=== PATIENT | female | born 1990 | race Caucasian/White ===

== ENCOUNTER 2018-03-03 18:50 | Observation (INO) | payer BC, OTHER ==
[~2018-03-03] VITALS: Ht 165.1 cm; Wt 72.5 kg
[2018-03-03] MEDS: SODIUM CHLORIDE 0.9% 1000ML 1,000 ML IV STA ×2 (19:23→22:27)
--- NOTE | 2018-03-03 20:13 | DIAGNOSTIC IMAGING REPORT ---
HEAD WITHOUT CONTRAST (CT) CT DOSE: 651.12 mGy.cm HISTORY: Trauma Struck head, syncope, emesis TECHNIQUE: Multiaxial CT images of the head were performed without the use of intravenous contrast. A dose lowering technique was utilized adhering to the principles of ALARA. Comparison: None. Findings: The paranasal sinuses and mastoid air cells are clear. The calvarium and skull base are intact. The ventricles and sulci are within normal limits. There is no mass, hematoma, midline shift, or acute infarct. Impression: No acute intracranial abnormality. The above report was generated using voice recognition software. It may contain grammatical, syntax or spelling errors. Electronically signed by: Jarret Morelos M.D. 03/03/2018 8:11 PM Dictated Date/Time: 03/03/2018 8:10 PM
[2018-03-03] MEDS ORDERED: ACET-1311 PO (20:22)
[2018-03-03] MEDS ORDERED: LORAZEPAM 0.5 MG TAB SL STA (21:53)
[2018-03-03 22:44] LABS: EOS % 0.1 %; EOS ABS # 0.01 K/uL (0-0.5); HEMATOCRIT 41.3 % (37-47); HEMOGLOBIN 14.5 g/dL (12.0-16.0); IG# 0.02 K/uL (0.00-0.02); LYMPH % 8.4 %; MEAN CELL VOLUME 86.8 fL (80-100); MEAN CORPUSCULAR HEMOGLOBIN 30.5 pg (25-34); MEAN CORPUSCULAR HGB CONC 35.1 g/dl (32-36); MEAN PLATELET VOLUME 9.6 fL (7.4-10.4); MONO % 3.7 %; MONO ABS # 0.35 K/uL (0.11-0.59); NEUT % 87.6 %; NEUT ABS # 8.36 K/uL (1.4-6.5); PLATELET COUNT 263 K/uL (130-400); RED CELL DISTRIBUTION WIDTH SD 38.4 fL (36.4-46.3); WHITE BLOOD COUNT 9.54 K/uL (4.8-10.8)
[2018-03-03 23:01] LABS: ALT/SGPT 23 U/L (12-78); AST/SGOT 16 U/L (15-37); BLOOD UREA NITROGEN 8 mg/dl (7-18); CALCIUM 8.9 mg/dl (8.5-10.1); CARBON DIOXIDE 24 mmol/L (21-32); GLUCOSE 88 mg/dl (70-99); POTASSIUM 3.9 mmol/L (3.5-5.1); SODIUM 136 mmol/L (136-145)
[2018-03-03 23:06] LABS: ALKALINE PHOSPHATASE 79 U/L (45-117); TOTAL PROTEIN 8.2 gm/dl (6.4-8.2)
[2018-03-04] VITALS (13 sets, daily range): BP systolic 88–104; BP diastolic 51–69; PULSE 64–116; TEMP 36.8–37.1; O2SAT 96–100; Ht 165.1 cm; Wt 72.5 kg
[2018-03-04] MEDS ORDERED: SODIUM CHLORIDE 0.9% 1000ML 1,000 ML IV STA (00:14)
--- NOTE | 2018-03-04 00:52 | EMERGENCY ROOM VISIT NOTE ---
History First contact with patient: 18:54 Chief Complaint: SYNCOPE (NEAR SYNCOPE) Stated Complaint: SYNCOPE, LAC. TO FINGER Nursing Triage Summary: Patient was standing at sink and cut finger and when she saw the blood she "passed out". Family member states she "hit her head hard" History of Present Illness The patient is a 27 year old female who presents to the Emergency Room via ambulance with complaints of "syncope, lack to finger". Patient states that while at home she cut her finger on an S-shaped took around 4:15 PM. She notes that she was then rinsing it off at the kitchen sink and passed out. This was witnessed by her grandfather. She was syncopized for about 5 minutes. She urinated at that time. She then vomited twice and 5 times total. She also notes a tingling and a slight pressure in her throat and chest. Headache is a 4 /10. She feels lightheaded, dizzy and slight light sensitivity. Review of Systems A complete 10-point Review of Systems was discussed with the patient, with pertinent positives and negatives listed in the History of Present Illness. All remaining Review of Systems questions can be considered negative unless otherwise specified. Past Medical/Surgical History Medical Problems: (1) Concussion Social History Smoking Status: Never Smoker Social History: Patient lives locally. Current/Historical Medications Scheduled Acetaminophen (Tylenol), 2 CAP PO PRN UD Allergies Coded Allergies: [place] (Verified Allergy, Intermediate, TONGUE SWELLS, 03/03/18) Physical Exam Vital Signs Date Time Temp Pulse Resp B/P (MAP) Pulse Ox O2 Delivery O2 Flow Rate FiO2 03/04/18 00:46 97 18 109/74 100 Room Air 03/04/18 00:45 106 03/03/18 23:57 85 18 100/71 100 Room Air 03/03/18 22:26 96 18 98/65 100 Room Air 03/03/18 22:02 95 18 107/64 97 Room Air 03/03/18 21:34 96 18 90/59 123 94/67 119 93/63 03/03/18 19:01 36.9 78 16 108/64 96 Room Air Physical Exam VITAL SIGNS - Vital signs and nursing notes were reviewed. Stable. GENERAL -27-year-old female appearing her stated age who is in no acute distress. Communicates well with provider and answers questions appropriately. SKIN - Without rashes. No meningeal or petechial rash. Small abrasion noted over the patient's left index finger distally on the dorsal aspect. HEAD - NC/AT. No joseph signs or raccoon's eyes. EYES - PERRL with EOMI bilaterally. Sclera anicteric. EARS - No deformities of external structures noted on gross examination bilaterally. NOSE - Midline and without cyanosis. No epistaxis or purulent drainage noted. MOUTH/OROPHARYNX - Without perioral cyanosis. Buccal mucosa pink and moist and without leukoplakia. Tongue midline with equal elevation of palate bilaterally. No tonsillar hypertrophy, erythema, or exudates noted. Fair dentition noted. NECK - Neck with FROM. Supple to palpation. No lymphadenopathy noted. No nuchal rigidity. No C-spine tenderness. LUNGS - Chest wall symmetric without accessory muscle use, intercostals retractions, or central cyanosis. Normal vesicular breath sounds CTA B/L. No wheezes, rales, or rhonchi appreciated. CARDIAC - RRR with S1/S2. No murmur, rubs, or gallops appreciated. EXTREMITIES - No clubbing or peripheral cyanosis. No pretibial edema present.+5/ 5 strength noted in UE/LE bilaterally. NEUROLOGIC - Cranial nerves II through XII grossly intact. Sensory intact to light touch throughout. PSYCH - A&O, and cooperates fully with examiner. Pt is very pleasant and interacts well with examiner. Medical Decision & Procedures ER Provider Diagnostic Interpretation: HEAD WITHOUT CONTRAST (CT) CT DOSE: 651.12 mGy.cm HISTORY: Trauma Struck head, syncope, emesis TECHNIQUE: Multiaxial CT images of the head were performed without the use of intravenous contrast. A dose lowering technique was utilized adhering to the principles of ALARA. Comparison: None. Findings: The paranasal sinuses and mastoid air cells are clear. The calvarium and skull base are intact. The ventricles and sulci are within normal limits. There is no mass, hematoma, midline shift, or acute infarct. Impression: No acute intracranial abnormality. The above report was generated using voice recognition software. It may contain grammatical, syntax or spelling errors. Electronically signed by: Jarret Morelos M.D. 03/03/2018 8:11 PM Dictated Date/Time: 03/03/2018 8:10 PM Laboratory Results 03/03/18 22:25 Red Blood Count 4.76, Mean Corpuscular Volume 86.8, Mean Corpuscular Hemoglobin 30.5, Mean Corpuscular Hemoglobin Concent 35.1, Mean Platelet Volume 9.6, Neutrophils (%) (Auto) 87.6, Lymphocytes (%) (Auto) 8.4, Monocytes (%) (Auto) 3.7, Eosinophils (%) (Auto) 0.1, Basophils (%) (Auto) 0.0, Neutrophils # (Auto) 8.36, Lymphocytes # (Auto) 0.80, Monocytes # (Auto) 0.35, Eosinophils # (Auto) 0.01, Basophils # (Auto) 0.00 03/03/18 22:25 Test 03/03/18 21:50 03/03/18 22:25 Urine Color YELLOW Urine Appearance CLEAR (CLEAR) Urine pH >= 9.0 (4.5-7.5) Urine Specific [place] 1.022 (1.000-1.030) Urine Protein NEG (NEG) Urine Glucose (UA) NEG (NEG) Urine Ketones NEG (NEG) Urine Occult Blood NEG (NEG) Urine Nitrite NEG (NEG) Urine Bilirubin NEG (NEG) Urine Urobilinogen NEG (NEG) Urine Leukocyte Esterase TRACE (NEG) Urine WBC (Auto) 5-10 /hpf (0-5) Urine RBC (Auto) 5-10 /hpf (0-4) Urine Hyaline Casts (Auto) 0 /lpf (0-5) Urine Epithelial Cells (Auto) >30 /lpf (0-5) Urine Bacteria (Auto) 1+ (NEG) Urine Renal Epithelial Cells /lpf (0-5) Urine Mucus PRESENT (NONE PRSENT) Urine Test NEG (NEG) White Blood Count 9.54 K/uL (4.8-10.8) Red Blood Count 4.76 M/uL (4.2-5.4) Hemoglobin 14.5 g/dL (12.0-16.0) Hematocrit 41.3 % (37-47) Mean Corpuscular Volume 86.8 fL (80-100) Mean Corpuscular Hemoglobin 30.5 pg (25-34) Mean Corpuscular Hemoglobin Concent 35.1 g/dl (32-36) Platelet Count 263 K/uL (130-400) Mean Platelet Volume 9.6 fL (7.4-10.4) Neutrophils (%) (Auto) 87.6 % Lymphocytes (%) (Auto) 8.4 % Monocytes (%) (Auto) 3.7 % Eosinophils (%) (Auto) 0.1 % Basophils (%) (Auto) 0.0 % Neutrophils # (Auto) 8.36 K/uL (1.4-6.5) Lymphocytes # (Auto) 0.80 K/uL (1.2-3.4) Monocytes # (Auto) 0.35 K/uL (0.11-0.59) Eosinophils # (Auto) 0.01 K/uL (0-0.5) Basophils # (Auto) 0.00 K/uL (0-0.2) RDW Standard Deviation 38.4 fL (36.4-46.3) RDW Coefficient of Variation 12.0 % (11.5-14.5) Immature Granulocyte % (Auto) 0.2 % Immature Granulocyte # (Auto) 0.02 K/uL (0.00-0.02) Anion Gap 7.0 mmol/L (3-11) Est Creatinine Clear Calc Drug Dose 105.6 ml/min Estimated GFR () 118.8 Estimated GFR (Non- 102.5 BUN/Creatinine Ratio 9.6 (10-20) Calcium Level 8.9 mg/dl (8.5-10.1) Magnesium Level 2.0 mg/dl (1.8-2.4) Total Bilirubin 0.7 mg/dl (0.2-1) Aspartate Amino Transf (AST/SGOT) 16 U/L (15-37) Alanine Aminotransferase (ALT/SGPT) 23 U/L (12-78) Alkaline Phosphatase 79 U/L (45-117) Troponin I < 0.015 ng/ml (0-0.045) Total Protein 8.2 gm/dl (6.4-8.2) Albumin 4.0 gm/dl (3.4-5.0) Globulin 4.2 gm/dl (2.5-4.0) Albumin/Globulin Ratio 1.0 (0.9-2) Medications Administered Medications (Trade) Dose Ordered Sig/Chriss Route Start Time Stop Time Status Last Admin Dose Admin Sodium Chloride 1,000 ml @ 999 mls/hr Q1H1M STAT IV 03/03/18 19:23 03/03/18 20:23 DC 03/03/18 22:27 999 MLS/HR Lorazepam (Ativan Tab) 0.5 mg NOW STAT SL 03/03/18 21:53 03/03/18 21:54 DC 03/03/18 22:01 0.5 MG Sodium Chloride 1,000 ml @ 999 mls/hr Q1H1M STAT IV 03/04/18 00:14 03/04/18 01:14 DC 03/04/18 00:19 999 MLS/HR Medical Decision Patient was seen and evaluated as above initially and D 9. Review was performed of nursing notes and vital signs. After obtaining a thorough history and physical examination the above work up was performed. Stat CT of the head was obtained. Patient initially thought it was 1997 and then quickly changed to 2007 and then 2017. There was questionable either syncope/loss of consciousness for [address] of the head obtained. GCS 15. This is negative. Bedside EKG does reveal normal sinus rhythm, rate of 73 bpm per my interpretation with T-wave abnormalities in leads V1, V2 and V3. No previous for comparison. The patient unfortunately created a barrier to care with declining an IV/blood work initially. After talking with her about my concerns we are able to have an IV placed and labs were drawn. There is no leukocytosis or anemia. Chemistry panel does not reveal any liver, or kidney failure. Troponin negative. Urine does reveal white blood cells, and 1+ urine bacteria with mucus however there are epithelial cells present. Urine test is negative. Patient was given a liter of fluid. The patient upon reassessment was still feeling dizzy and almost syncopal. The concern is that the patient may have passed out for other reasons besides vasovagal from seeing blood/the scratch on her finger. I did discuss this with the attending, and subsequent the hospitalist. He was then recommended to talk to cardiology and spoke with Dr. Viveros. It is felt the patient could likely follow-up in the outpatient setting and he was going to call her tomorrow. I then spoke with Dr. Tucker again, and after reviewing the case again it was felt that she should stay. She will receive fluids and further care here in the hospital. Please refer to for the documentation regarding her stay. In the evaluation and treatment of this patient, the following differential diagnoses were considered: Concussion, Contrecoup Injury, Brain Tumor, Depression, Encephalitis, Hypothyroidism, Meningitis, CVA, TIA, Migraine, Cluster Headache, Intracranial Abnormality, Intracranial Hemorrhage, Subdural Hematoma, Subarachnoid Hemorrhage, Hydrocephalus. Impression Primary Impression: Syncope Additional Impressions: T wave inversion in EKG Finger abrasion Departure Information Referrals No Doctor, Assigned (PCP) Patient Instructions [facility] Problem Qualifiers
[2018-03-04] MEDS ORDERED: MAGNESIUM HYDROXIDE SUSP 30 ML UDC PO PRN (01:45)
[2018-03-04] MEDS ORDERED: POLYETHYLENE (MIRALAX) 17 GM PACK PO PRN (01:45)
[2018-03-04] MEDS ORDERED: ALUMINUM/MAGNESIUM/SIMETH (MAALOX MAX) 30 ML UDC PO PRN (01:45)
[2018-03-04] MEDS ORDERED: ONDANSETRON INJ 2 MG/ML 2 ML VIAL IV PRN (01:45)
[2018-03-04] MEDS ORDERED: ACETAMINOPHEN 325 MG TAB PO PRN (01:45)
--- NOTE | 2018-03-04 01:59 | History and Physical ---
History & Physical Date & Time of Service: Mar 04, 2018 at 01:38 Chief Complaint: Syncope, Lac. To Finger Primary Care Physician: No Doctor, Assigned History of Present Illness Source: patient 27 y/o F with no significant medical history. Pt suffered a minor finger laceration while handling some farm equipment. She went indoors to wash off the area and while doing so suffered a syncopal episode. She fell back, hit the back of her head on a linoleum floor and remained unconscious for approximately 5 min, per her grandfather, who witnessed the event. She was groggy and remained lightheaded after she woke up. She did not display any seizure activity or tongue biting, but was apparently incontinent of urine. On arrival to the ER she she complains of persistent lightheadedness and displays orthostatic changes on monitor. Ther are no notable lab abnormalities and a CT head was also WNL. An EKG shoes anterior T wave inversion which are of questionable relevance. Past Medical/Surgical History No significant history Family History No history of cardiac arrhythmias/sudden - grandfather recently admitted with TIA due to carotid stenosis Social History Does not smoke or drink Smoking Status: Never Smoker Allergies Coded Allergies: [place] (Verified Allergy, Intermediate, TONGUE SWELLS, 03/03/18) Home Medications Scheduled Acetaminophen (Tylenol), 2 CAP PO PRN UD Review of Systems Constitutional: No fever, No chills, No sweats Eyes: No worsening of vision ENT: No hearing loss, No unusual epistaxis, No nasal symptoms Respiratory: No cough, No wheezing Cardiovascular: No chest pain, No orthopnea, No PND Abdomen: No pain, No nausea, No vomiting Musculoskeletal: No joint pain Genitourinary - Female: No dysuria, No urinary frequency, No urinary urgency Neurologic: + problem reported (Syncope as above) Psychiatric: No depression symptoms Endocrine: No fatigue Hematologic / Lymphatic: No abnormal bleeding/bruising Integumentary: No rash Allergic / Immunologic: No environmental allergies Physical Exam Vital Signs Date Time Temp Pulse Resp B/P (MAP) Pulse Ox O2 Delivery O2 Flow Rate FiO2 03/04/18 00:46 97 18 109/74 100 Room Air 03/04/18 00:45 106 03/03/18 23:57 85 18 100/71 100 Room Air 03/03/18 22:26 96 18 98/65 100 Room Air 03/03/18 22:02 95 18 107/64 97 Room Air 03/03/18 21:34 96 18 90/59 123 94/67 119 93/63 03/03/18 19:01 36.9 78 16 108/64 96 Room Air General Appearance: + pertinent finding (Lethargic young female - no distress - HR increased 30-40/min when sitting up - SBP by 10-20) Head: normocephalic Eyes: normal inspection ENT: normal ENT inspection, pharynx normal Neck: supple, thyroid normal Respiratory/Chest: chest non-tender, lungs clear, normal breath sounds Cardiovascular: regular rate, rhythm, no edema, no gallop Abdomen/GI: normal bowel sounds, non tender, soft Back: normal inspection, no CVA tenderness Extremities/Musculoskelatal: normal inspection, no calf tenderness, normal capillary refill Neurologic/Psych: web master II-XII nml as tested, no motor/sensory deficits, alert, oriented x 3 Skin: normal color Diagnostics Laboratory Results Results Past 24 Hours Test 03/03/18 21:50 03/03/18 22:25 Range/Units Urine Color YELLOW Urine Appearance CLEAR CLEAR Urine pH >= 9.0 4.5-7.5 Urine Specific [place] 1.022 1.000-1.030 Urine Protein NEG NEG Urine Glucose (UA) NEG NEG Urine Ketones NEG NEG Urine Occult Blood NEG NEG Urine Nitrite NEG NEG Urine Bilirubin NEG NEG Urine Urobilinogen NEG NEG Urine Leukocyte Esterase TRACE NEG Urine WBC (Auto) 5-10 0-5 /hpf Urine RBC (Auto) 5-10 0-4 /hpf Urine Hyaline Casts (Auto) 0 0-5 /lpf Urine Epithelial Cells (Auto) >30 0-5 /lpf Urine Bacteria (Auto) 1+ NEG Urine Renal Epithelial Cells 0-5 /lpf Urine Mucus PRESENT NONE PRSENT Urine Test NEG NEG White Blood Count 9.54 4.8-10.8 K/uL Red Blood Count 4.76 4.2-5.4 M/uL Hemoglobin 14.5 12.0-16.0 g/dL Hematocrit 41.3 37-47 % Mean Corpuscular Volume 86.8 80-100 fL Mean Corpuscular Hemoglobin 30.5 25-34 pg Mean Corpuscular Hemoglobin Concent 35.1 32-36 g/dl Platelet Count 263 130-400 K/uL Mean Platelet Volume 9.6 7.4-10.4 fL Neutrophils (%) (Auto) 87.6 % Lymphocytes (%) (Auto) 8.4 % Monocytes (%) (Auto) 3.7 % Eosinophils (%) (Auto) 0.1 % Basophils (%) (Auto) 0.0 % Neutrophils # (Auto) 8.36 1.4-6.5 K/uL Lymphocytes # (Auto) 0.80 1.2-3.4 K/uL Monocytes # (Auto) 0.35 0.11-0.59 K/uL Eosinophils # (Auto) 0.01 0-0.5 K/uL Basophils # (Auto) 0.00 0-0.2 K/uL RDW Standard Deviation 38.4 36.4-46.3 fL RDW Coefficient of Variation 12.0 11.5-14.5 % Immature Granulocyte % (Auto) 0.2 % Immature Granulocyte # (Auto) 0.02 0.00-0.02 K/uL Sodium Level 136 136-145 mmol/L Potassium Level 3.9 3.5-5.1 mmol/L Chloride Level 105 98-107 mmol/L Carbon Dioxide Level 24 21-32 mmol/L Anion Gap 7.0 3-11 mmol/L Blood Urea Nitrogen 8 7-18 mg/dl Creatinine 0.80 0.60-1.20 mg/dl Est Creatinine Clear Calc Drug Dose 105.6 ml/min Estimated GFR () 118.8 Estimated GFR (Non- 102.5 BUN/Creatinine Ratio 9.6 10-20 Random Glucose 88 70-99 mg/dl Calcium Level 8.9 8.5-10.1 mg/dl Magnesium Level 2.0 1.8-2.4 mg/dl Total Bilirubin 0.7 0.2-1 mg/dl Aspartate Amino Transf (AST/SGOT) 16 15-37 U/L Alanine Aminotransferase (ALT/SGPT) 23 12-78 U/L Alkaline Phosphatase 79 45-117 U/L Troponin I < 0.015 0-0.045 ng/ml Total Protein 8.2 6.4-8.2 gm/dl Albumin 4.0 3.4-5.0 gm/dl Globulin 4.2 2.5-4.0 gm/dl Albumin/Globulin Ratio 1.0 0.9-2 Microbiology Results 03/03/18 Urine Culture, Received Pending Diagnostic Radiology CT head: no abnormalities EKG Sinus - ant T wv inversion - no previous for comparison Impression Assessment and Plan 27 y/o F with no significant medical history. Pt suffered a minor finger laceration while handling some farm equipment. She went indoors to wash off the area and while doing so suffered a syncopal episode. She fell back, hit the back of her head on a linoleum floor and remained unconscious for approximately 5 min, per her grandfather, who witnessed the event. She was groggy and remained lightheaded after she woke up. She did not display any seizure activity or tongue biting, but was apparently incontinent of urine. She also states that she became nauseous and vomited once after hitting her head. On arrival to the ER she she complains of persistent lightheadedness and displays orthostatic changes on monitor. Ther are no notable lab abnormalities and a CT head was also WNL. An EKG shoes anterior T wave inversion which are of questionable relevance. 1) Syncope - orthostasis - it would make sense to assume this was a vasovagal episode, however, she remains considerably orthostatic in the ER after a few liters of fluid. We will continue IVF overnight and reassess AM. The etiology is not clear as she states that she has maintained her fluid intake and denies profuse sweating or other unusual insensible loss. An echo is ordered for AM. 2) Likely concussion - LOC, persistent lightheadedness and N/V described - will monitor overnight with neurochecks - repeat CT with any changes. 3) Abnormal EKG - shows anterior inversions - unlikely related or pathological considering her history. An echo is ordered as mentioned. She is assigned to telemetry overnight. Full code - SCDs Total time for this admit including review of labs, meds, imaging, EKG - discussion with pt and ER attending - 40 min Resuscitation Status VTE Prophylaxis Will order VTE Prophylaxis: Yes Reason no Mechanical VTE Order: Treatment not indicated
[2018-03-04] MEDS: D5NSS + 20MEQ KCL 1,000 ML IV SCH ×2 (03:23→11:29)
[2018-03-04] MEDS ORDERED: IV FLUIDS COMPLETED PRN (04:30)
--- NOTE | 2018-03-04 07:51 | Family Medicine Progress Note ---
Progress Note Date of Service Mar 04, 2018. Subjective Pt evaluation today including: conversation w/ patient, physical exam, chart review, lab review Pain: Headache Voiding: no voiding problems, no incontinence States occipital headache today where she hit her head and a little nausea Has been able to eat a little breakfast No focal weakness, no blurred or double vision States that prior to her syncopal event, grandfather was washing her hand where she cut it. States that she became syncope once many years ago when teacher was talking about a blood historical joseph. Patient also states that she did not go the bed until 7am the day prior. Also states she didn't eat or drink much yesterday before. Grandfather at bedside and states the same. Patient states she is unlikely . Has not had intercourse for 5 years. Constitutional: No fever, No sweats, No weight loss, No weakness ENT: No unusual epistaxis, No nasal symptoms, No sore throat, No tinnitus Respiratory: No cough, No sputum, No wheezing, No shortness of breath, No dyspnea at rest Cardiovascular: No chest pain, No orthopnea, No palpitations Abdomen: + nausea, No pain, No vomiting, No diarrhea, No constipation Musculoskeletal: No joint pain, No muscle pain Female : No dysuria, No urinary frequency Neurologic: No weakness, No numbness/tingling, No vertigo Skin: No rash, No new/changing skin lesions, No color change Medications Current Inpatient Medications Medications (Trade) Dose Ordered Sig/Chriss Route Start Time Stop Time Status Last Admin Dose Admin Acetaminophen (Tylenol Tab) 650 mg Q4H PRN PO 03/04/18 01:45 04/03/18 01:44 03/04/18 11:29 650 MG Al Hydrox/Mg Hydrox/Simethicone (Maalox Max Susp) 15 ml Q4H PRN PO 03/04/18 01:45 04/03/18 01:44 Magnesium Hydroxide (Milk Of Magnesia Susp) 30 ml Q12H PRN PO 03/04/18 01:45 04/03/18 01:44 Ondansetron HCl (Zofran Inj) 4 mg Q6H PRN IV 03/04/18 01:45 04/03/18 01:44 03/04/18 11:29 4 MG Polyethylene (Miralax Powder Packet) 17 gm DAILY PRN PO 03/04/18 01:45 04/03/18 01:44 Miscellaneous (Iv Fluids Completed) 1 ea PRN PRN N/A 03/04/18 04:30 03/04/19 04:29 Objective Vital Signs Date Time Temp Pulse Resp B/P (MAP) Pulse Ox O2 Delivery O2 Flow Rate FiO2 03/04/18 14:55 36.8 73 18 97/63 (74) 97 Room Air 03/04/18 12:00 98 Room Air 03/04/18 11:41 37.0 74 16 97/63 (74) 97 Room Air 03/04/18 08:43 79 93/62 (72) 72 100/69 (79) 72 90/63 (72) 03/04/18 08:00 98 Room Air 03/04/18 08:00 98 Room Air 03/04/18 07:46 37.1 92 16 89/57 (68) 98 Room Air 03/04/18 05:05 37.0 90 17 90/56 (67) 98 Room Air 03/04/18 03:17 36.9 108 16 102/69 100 Room Air 03/04/18 01:51 88 18 100/58 100 Room Air 03/04/18 00:46 97 18 109/74 100 Room Air 03/04/18 00:45 106 03/03/18 23:57 85 18 100/71 100 Room Air 03/03/18 22:26 96 18 98/65 100 Room Air 03/03/18 22:02 95 18 107/64 97 Room Air 03/03/18 21:34 96 18 90/59 123 94/67 119 93/63 03/03/18 19:01 36.9 78 16 108/64 96 Room Air Physical Exam General Appearance: WD/WN, no apparent distress Eyes: normal inspection, EOMI ENT: hearing grossly normal, TMs normal, pharynx normal Neck: supple, no adenopathy, no JVD Respiratory/Chest: lungs clear, no respiratory distress Cardiovascular: regular rate, rhythm, no gallop, no murmur Abdomen: normal bowel sounds, non tender, soft Extremities: non-tender, no pedal edema Neurologic/Psychiatric: alert, normal mood/affect, oriented x 3 Skin: normal color, warm/dry, no rash Lymphatic: no adenopathy Laboratory Results Last 24 Hours Test 4/26/18 21:50 03/03/18 22:25 03/04/18 09:18 Urine Color YELLOW Urine Appearance CLEAR Urine pH >= 9.0 Urine Specific [place] 1.022 Urine Protein NEG Urine Glucose (UA) NEG Urine Ketones NEG Urine Occult Blood NEG Urine Nitrite NEG Urine Bilirubin NEG Urine Urobilinogen NEG Urine Leukocyte Esterase TRACE Urine WBC (Auto) 5-10 /hpf Urine RBC (Auto) 5-10 /hpf Urine Hyaline Casts (Auto) 0 /lpf Urine Epithelial Cells (Auto) >30 /lpf Urine Bacteria (Auto) 1+ Urine Renal Epithelial Cells /lpf Urine Mucus PRESENT Urine Test NEG White Blood Count 9.54 K/uL 6.77 K/uL Red Blood Count 4.76 M/uL 4.15 M/uL Hemoglobin 14.5 g/dL 12.5 g/dL Hematocrit 41.3 % 36.3 % Mean Corpuscular Volume 86.8 fL 87.5 fL Mean Corpuscular Hemoglobin 30.5 pg 30.1 pg Mean Corpuscular Hemoglobin Concent 35.1 g/dl 34.4 g/dl Platelet Count 263 K/uL 227 K/uL Mean Platelet Volume 9.6 fL 9.3 fL Neutrophils (%) (Auto) 87.6 % Lymphocytes (%) (Auto) 8.4 % Monocytes (%) (Auto) 3.7 % Eosinophils (%) (Auto) 0.1 % Basophils (%) (Auto) 0.0 % Neutrophils # (Auto) 8.36 K/uL Lymphocytes # (Auto) 0.80 K/uL Monocytes # (Auto) 0.35 K/uL Eosinophils # (Auto) 0.01 K/uL Basophils # (Auto) 0.00 K/uL RDW Standard Deviation 38.4 fL 38.9 fL RDW Coefficient of Variation 12.0 % 12.1 % Immature Granulocyte % (Auto) 0.2 % Immature Granulocyte # (Auto) 0.02 K/uL Sodium Level 136 mmol/L 139 mmol/L Potassium Level 3.9 mmol/L 3.6 mmol/L Chloride Level 105 mmol/L 113 mmol/L Carbon Dioxide Level 24 mmol/L 23 mmol/L Anion Gap 7.0 mmol/L 3.0 mmol/L Blood Urea Nitrogen 8 mg/dl 6 mg/dl Creatinine 0.80 mg/dl 0.61 mg/dl Est Creatinine Clear Calc Drug Dose 105.6 ml/min 139.1 ml/min Estimated GFR () 118.8 146.0 Estimated GFR (Non- 102.5 126.0 BUN/Creatinine Ratio 9.6 9.3 Random Glucose 88 mg/dl 82 mg/dl Calcium Level 8.9 mg/dl 8.2 mg/dl Magnesium Level 2.0 mg/dl Total Bilirubin 0.7 mg/dl Aspartate Amino Transf (AST/SGOT) 16 U/L Alanine Aminotransferase (ALT/SGPT) 23 U/L Alkaline Phosphatase 79 U/L Troponin I < 0.015 ng/ml < 0.015 ng/ml Total Protein 8.2 gm/dl Albumin 4.0 gm/dl Globulin 4.2 gm/dl Albumin/Globulin Ratio 1.0 Assessment and Plan 27 year old female presenting with single syncope episode. Based on history seems as a combination of vasovagal syncope and mild dehydration. Unfortunately when falling, hit her head and has sustained a concussion. No evidence on CT of structural damage. There is no indication that this was related to seizure activity. Cardiac origin also a possibility. Our plan for her is as follows. Syncope - Likely orthostatic component given positional tachycardia - History also suggests vasovagal component - Hydration completed; encourage PO hydration - Echocardiogram ordered to evaluate for structural or valvular issues - EKG does not reveal arrhythmia; she has anterior T wave inversions that have no evolved with serial EKGs - Continue orthostatics q4h Concussion - Negative head CT - Tylenol PRN - Encourage relative mental rest DVT Prophylaxis - SCD Knee, ZINA Hose - Encourage early ambulation as tolerated Code Status - Level I Full Code Disposition - Telemetry - OT and PT evaluations Continued [facility] stay due to: ambulation difficulties Discharge planning: home Assessment/Plan Resident Physician Supervision Note: I was present with Dr. Jones during the history and exam. I discussed the case with the resident and agree with the findings and plan as documented in the note. Any exceptions or clarifications are listed here: Pt reports improving but still significant nausea and photophobia with headaches c/w concussion. Present for hx review with grandfather which is consistent with syncope and concussion without apparent sz activity. Still considerably tachycardic with position changes w/ accompanying lightheadedness. Agree w/ continued monitoring and hydration with re-assess in PM.
[2018-03-04 09:37] LABS: HEMATOCRIT 36.3 % (37-47); HEMOGLOBIN 12.5 g/dL (12.0-16.0); MEAN CELL VOLUME 87.5 fL (80-100); MEAN CORPUSCULAR HEMOGLOBIN 30.1 pg (25-34); MEAN CORPUSCULAR HGB CONC 34.4 g/dl (32-36); MEAN PLATELET VOLUME 9.3 fL (7.4-10.4); PLATELET COUNT 227 K/uL (130-400); RED CELL DISTRIBUTION WIDTH CV 12.1 % (11.5-14.5); RED CELL DISTRIBUTION WIDTH SD 38.9 fL (36.4-46.3); WHITE BLOOD COUNT 6.77 K/uL (4.8-10.8)
[2018-03-04 10:03] LABS: BLOOD UREA NITROGEN 6 mg/dl (7-18); CALCIUM 8.2 mg/dl (8.5-10.1); CARBON DIOXIDE 23 mmol/L (21-32); CREATININE 0.61 mg/dl (0.60-1.20); GLUCOSE 82 mg/dl (70-99); POTASSIUM 3.6 mmol/L (3.5-5.1); SODIUM 139 mmol/L (136-145)
--- NOTE | 2018-03-04 13:20 | ECHOCARDIOGRAM REPORT ---
*NOTICE TO RECEIVING LIBERTARIAN AGENCY This information is strictly Confidential and protected under [place] law. [place] law prohibits you from making any further disclosure of this information unless further disclosure is expressly permitted by the written consent of the person to whom it pertains or is authorized by law. A general authorization for the release of medical or other information is not sufficient for this purpose. Hospital accepts no responsibility if the information is made available to any other person, INCLUDING THE PATIENT. Interpretation Summary * Name: ANDREI WALKER Study Date: 03/04/2018 07:34 AM BP: 90/56 mmHg * Patient Location: [facility]\S\N278\S\1 HR: 90 * : 1990 (M/d/yyyy) Gender: Female Height: 65 in * Age: 27 yrs Ethnicity: CA Weight: 154 lb * Ordering Physician: Haja Tucker * Performed By: Cheli Martin RDCS * * Reason For Study: SYNCOPE, ABNORMAL EKG * BSA: 1.8 m2 * This was essentially a normal study. * -- Conclusions -- * Left ventricular systolic function is normal. * Normal diastolic function Procedure Details * A complete two-dimensional transthoracic echocardiogram was performed (2D, M-mode, Doppler and color flow Doppler). Left Ventricle * The left ventricle is normal in size. * There is normal left ventricular wall thickness. * Ejection Fraction = 60-65%. * Left ventricular systolic function is normal. * Normal diastolic function * The left ventricular wall motion is normal. Right Ventricle * The right ventricular cavity size is normal (basal dimension <4.2 cm in right ventricular apical 4-chamber view). * The right ventricular systolic function is normal. Atria * The left atrial size is normal. * Right atrial size is normal. Mitral Valve * The mitral valve anatomy is normal. * There is trace mitral regurgitation. Tricuspid Valve * The tricuspid valve is not well visualized, but is grossly normal. * Significant tricuspid regurgitation is absent. Aortic Valve * The aortic valve is normal in structure and function. * No hemodynamically significant valvular aortic stenosis. * There is no significant aortic regurgitation. Pulmonic Valve * The pulmonic valve is not well seen, but is grossly normal. * Trace pulmonic valvular regurgitation. Pericardium/Pleural * There is no pericardial effusion. Great Vessels * Normal inferior vena cava diameter and respiratory variation suggests normal central venous pressure. MMode 2D Measurements and Calculations IVSd 1.0 cm IVSs 1.4 cm LVIDd 4.2 cm LVIDs 2.8 cm LVPWd 0.88 cm LVPWs 1.4 cm IVS/LVPW 1.2 FS 32.3 % EDV(Teich) 77.9 ml ESV(Teich) 30.4 ml EF(Teich) 61.0 % EDV(cubed) 73.2 ml ESV(cubed) 22.7 ml EF(cubed) 69.0 % % IVS thick 37.5 % % LVPW thick 55.0 % LV mass(C)d 128.5 grams LV mass(C)dI 72.6 grams/m\S\2 LV mass(C)s 129.4 grams LV mass(C)sI 73.1 grams/m\S\2 SV(Teich) 47.5 ml SI(Teich) 26.8 ml/m\S\2 SV(cubed) 50.5 ml SI(cubed) 28.5 ml/m\S\2 ACS 1.9 cm LA dimension 3.6 cm asc Aorta Diam 2.9 cm LVOT diam 2.0 cm LVOT area 3.2 cm\S\2 LVAd ap4 32.9 cm\S\2 LVLd ap4 7.9 cm EDV(MOD-sp4) 114.6 ml EDV(sp4-el) 115.6 ml LVAs ap4 18.3 cm\S\2 LVLs ap4 6.5 cm ESV(MOD-sp4) 43.3 ml ESV(sp4-el) 43.6 ml EF(MOD-sp4) 62.2 % EF(sp4-el) 62.3 % LVAd ap2 29.1 cm\S\2 LVLd ap2 8.5 cm EDV(MOD-sp2) 85.4 ml EDV(sp2-el) 84.9 ml LVAs ap2 16.1 cm\S\2 LVLs ap2 6.7 cm ESV(MOD-sp2) 31.9 ml ESV(sp2-el) 32.8 ml EF(MOD-sp2) 62.7 % EF(sp2-el) 61.4 % LVLd %diff 6.2 % EDV(MOD-bp) 101.7 ml LVLs %diff 2.5 % ESV(MOD-bp) 37.7 ml EF(MOD-bp) 63.0 % SV(MOD-sp4) 71.3 ml SI(MOD-sp4) 40.3 ml/m\S\2 SV(MOD-sp2) 53.5 ml SI(MOD-sp2) 30.2 ml/m\S\2 SV(MOD-bp) 64.0 ml SI(MOD-bp) 36.2 ml/m\S\2 SV(sp4-el) 72.0 ml SI(sp4-el) 40.7 ml/m\S\2 SV(sp2-el) 52.2 ml SI(sp2-el) 29.5 ml/m\S\2 Doppler Measurements and Calculations MV E max yaima 61.5 cm/sec MV A max yaima 49.8 cm/sec MV E/A 1.2 MV dec time 0.14 sec Ao V2 max 106.1 cm/sec Ao max PG 4.5 mmHg Ao max PG (full) 1.4 mmHg PREETHI(V,A) 2.7 cm\S\2 PREETHI(V,D) 2.7 cm\S\2 LV V1 max PG 3.1 mmHg LV V1 max 88.3 cm/sec PA V2 max 68.5 cm/sec PA max PG 1.9 mmHg
[2018-03-04] MEDS ORDERED: NAPROXEN 250 MG TAB PO PRN (15:30)
[2018-03-04] MEDS: SODIUM CHLORIDE 0.9% 1000ML 1,000 ML IV SCH (19:22)
[2018-03-05] VITALS (8 sets, daily range): BP systolic 97–112; BP diastolic 64–77; PULSE 53–91; TEMP 36.7–36.8; O2SAT 93–98
[2018-03-05] MEDS: SODIUM CHLORIDE 0.9% 1000ML 1,000 ML IV SCH ×2 (01:39→10:05)
[2018-03-05 08:03] LABS: HEMATOCRIT 35.1 % (37-47); MEAN CELL VOLUME 88.2 fL (80-100); MEAN CORPUSCULAR HEMOGLOBIN 30.2 pg (25-34); MEAN CORPUSCULAR HGB CONC 34.2 g/dl (32-36); MEAN PLATELET VOLUME 9.3 fL (7.4-10.4); PLATELET COUNT 179 K/uL (130-400); RED CELL DISTRIBUTION WIDTH CV 12.1 % (11.5-14.5); RED CELL DISTRIBUTION WIDTH SD 38.8 fL (36.4-46.3); WHITE BLOOD COUNT 4.92 K/uL (4.8-10.8)
--- NOTE | 2018-03-05 08:11 | Family Medicine Progress Note ---
Progress Note Date of Service Mar 05, 2018. Assessment and Plan 27 yo single syncopal episode in the setting of blood/dehydration, likely vasovagal-->subsequent fall, head injury and concussion Plan; -Doing well clinically, will discuss with cardiology. Patient will be likely discharged today, with close follow up from cardiology. --See DC summary for ROS and PE
[2018-03-05 08:36] LABS: CREATININE 0.68 mg/dl (0.60-1.20); POTASSIUM 3.7 mmol/L (3.5-5.1)
--- NOTE | 2018-03-05 12:31 | Discharge Instructions ---
Discharge Instructions Date of Service Mar 05, 2018. Admission Reason for Admission: Concussion, Syncope Discharge Discharge Diagnosis / Problem: Concussion, syncope Discharge Goals Goal(s): Decrease discomfort, Improve function, Increase independence Activity Recommendations Activity Limitations: per Instructions/Follow-up section . Instructions / Follow-Up Instructions / Follow-Up You came to the hospital after passing out (syncopal episode) and hitting your head. We did test and scans to be sure that you did not severely hurt yourself. In addition, we wanted to be sure to rule out heart problems that could have caused you to pass out. All the test and evaluations were negative. It does appear that you experienced a concussion. With this said, we encourage you to follow up closely with a primary care doctor in the next 1-2 business days. Please be aware of the following symptoms; persistent headaches, visual changes , problems with balance, loss of sensation, trouble with memory to name a few follow up with your PCP. In addition, be aware for persistent dizziness or syncope. If you experience persistent symptoms or severe symptoms such as loss of consciousness, follow up in the emergency room. Current Hospital Diet Patient's current hospital diet: Regular Diet Discharge Diet Recommended Diet: Regular Diet Pending Studies Studies pending at discharge: no Medical Emergencies . Who to Call and When: Medical Emergencies: If at any time you feel your situation is an emergency, please call 911 immediately. . Non-Emergent Contact Non-Emergency issues call your: Primary Care Provider . . "Provider Documentation" section prepared by Avelino Renee. .
--- NOTE | 2018-03-05 12:41 | Discharge Summary ---
Discharge Summary Date of Service Mar 05, 2018. Discharge Summary Admission Date: Mar 04, 2018 at 01:34 Discharge Date: Mar 05, 2018 Discharge Disposition: Home Principal Diagnosis: Syncope/Concussion Problems/Secondary Diagnoses: Vasovagal syncopal episode, fall, head injury and subsequent concussion Procedures: ECHO * -- Conclusions -- * Left ventricular systolic function is normal. * Normal diastolic function Procedure Details DIAGNOSTIC IMAGING [~ rep ct add3]] HEAD WITHOUT CONTRAST (CT) CT DOSE: 651.12 mGy.cm HISTORY: Trauma Struck head, syncope, emesis TECHNIQUE: Multiaxial CT images of the head were performed without the use of intravenous contrast. A dose lowering technique was utilized adhering to the principles of ALARA. Comparison: None. Findings: The paranasal sinuses and mastoid air cells are clear. The calvarium and skull base are intact. The ventricles and sulci are within normal limits. There is no mass, hematoma, midline shift, or acute infarct. Impression: No acute intracranial abnormality. Medication Reconciliation Continued Medications: Acetaminophen (Tylenol) Unknown Strength Tab 2 CAP PO PRN UD, TAB Discharge Exam Review of Systems: Constitutional: No fever, No chills ENT: No hearing loss, No sore throat, No tinnitus Respiratory: No cough, No sputum, No shortness of breath Cardiovascular: No chest pain Abdomen: No pain, No nausea, No vomiting Genitourinary - Female: No dysuria, No urinary frequency, No urinary urgency Neurologic: + numbness/tingling (tingling distal to IV site RUE), No memory loss, No paralysis, No weakness, No vertigo Physical Exam: General Appearance: WD/WN, no apparent distress Neck: supple, no adenopathy, thyroid normal Respiratory/Chest: chest non-tender, lungs clear, normal breath sounds, no respiratory distress, no accessory muscle use Cardiovascular: regular rate, rhythm, no edema, no gallop, no murmur Abdomen / GI: normal bowel sounds, non tender, soft Neurologic/Psychiatric: 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 Edema of right upper ext. distal to IV site. ) Skin: normal color, warm/dry, no rash Hospital Course 27 year old female presenting with single syncope episode. Based on history seems as a combination of vasovagal syncope and mild dehydration.Unfortunately when falling, hit her head and has sustained a concussion. No evidence on CT of structural damage. ECHO was unremarkable. Syncope - Likely orthostatic component given positional tachycardia - History also suggests vasovagal component - Hydration completed; encourage PO hydration - Echocardiogram unremarkable for structural issue - EKG does not reveal arrhythmia; she has anterior T wave inversions that have no evolved with serial EKGs - Continue orthostatics q4h Concussion - Negative head CT - Tylenol PRN - Encourage relative mental rest Total Time Spent: Greater than 30 minutes This includes examination of the patient, discharge planning, medication reconciliation, and communication with other providers. Discharge Instructions Please refer to the electronic Patient Visit Report (Discharge Instructions) for additional information. Follow-Up 1-2 business days with PCP Additional Copies To Dinesh Hays D.O. Assessment/Plan Resident Physician Supervision Note: I was present with Dr. Renee during the history and exam. I discussed the case with the resident and agree with the findings and plan as documented in the note. Any exceptions or clarifications are listed here: Pt states that baseline headache, nausea and photosensitivity have improved overnight. Resolution of positional orthostasis, though still having lightheadedness with rapid head movement. Mild cervical MSK pain in L trap which is reproducible and reported from sleeping in hospital bed. Will need close follow up from primary care, but stable for discharge. Strongly encouraged regular hydration to avoid similar incidents.
== END 2018-03-05 14:30 | disposition home or self-care (01) ==
LOC: C.EDD 18:53 → C.MED 03-04 01:34 → EDBD 03-04 01:34 → ENRESERV 03-04 01:48
PROVIDERS: ADMIT Internal Medicine; ATTEND Family Medicine
DX: S06.0X1A Concussion with loss of consciousness of 30 minutes or less, initial encounter (principal); W19.XXXA Unspecified fall, initial encounter; S60.411A Abrasion of left index finger, initial encounter; W26.0XXA Contact with knife, initial encounter; Y92.010 Kitchen of single-family (private) house as the place of occurrence of the external cause; Z91.018 Allergy to other foods; R51 Headache; R55 Syncope and collapse